=== PATIENT | male | born 1955 | race Caucasian/White ===

== ENCOUNTER 2020-11-06 08:46 | Emergency (ER) | payer MEDICAID ==
[~2020-11-06] VITALS: Ht 188 cm; Wt 88.0 kg
[2020-11-06 10:36] LABS: BASOPHILS % 0.8 % (0.0-2.0); HEMATOCRIT. 41.1 % (42.0-52.0); HEMOGLOBIN. 14.5 g/dL (14.0-18.0); LYMPHOCYTES % 29.8 % (20.0-50.0); MEAN PLATELET VOLUME 7.2 fl (7.4-10.4); MONOCYTES % 7.1 % (2.0-8.0); NEUTROPHILS % 60.3 % (40.0-76.0); PLATELET 170 x1000/uL (130-400); RED BLOOD CELL COUNT 4.51 mill/uL (4.7-6.1); RED CELL DISTRIBUTION WIDTH 12.9 % (11.6-14.6)
[2020-11-06 10:42] LABS: CHLORIDE 106 mEq/L (98-107)
[2020-11-06 10:53] LABS: CLARITY URINE CLEAR (CLEAR); COLOR URINE DARK YELLOW (YELLOW); KETONES URINE NEGATIVE (NEGATIVE); LEUKOCYTE ESTERASE URINE TRACE (NEGATIVE); NITRITE URINE NEGATIVE (NEGATIVE); OCCULT BLOOD URINE 3+ (NEGATIVE); PROTEIN URINE NEGATIVE (NEGATIVE); SPECIFIC GRAVITY URINE 1.018 (1.005-1.030); UROBILINOGEN URINE 0.2 E.U./dL (0.2-1.0)
[2020-11-06 14:10] VITALS: BP 149/83
== END 2020-11-06 14:10 | disposition home or self-care (01) ==
LOC: ER 08:46
DX: R31.0 Gross hematuria (principal); Z98.890 Other specified postprocedural states
CPT/HCPCS: 36415; 76770; 80053; 81003; 85025; 99284